=== PATIENT | male | born 1935 | race African-American/Black ===

== ENCOUNTER → 2021-03-29 | Outpatient (CLI) | payer MEDICARE, MEDICAID ==
[~2021-03-29] MED LIST: ALBUTEROL INHALER INH; AMLO5TAB88 PO; DOXA2TAB PO; DUTA0.5C2; FINA5TAB11 PO; GLIM2TAB30 PO; HYDR12.54 PO; METF-416 PO; OMEP20CA14 PO; SILO4CAP; SIMV20TA2 PO
== END | disposition home or self-care (01) ==
LOC: CT 08:10
PROVIDERS: ATTEND Urology
DX: N40.0 Benign prostatic hyperplasia without lower urinary tract symptoms (principal); K76.9 Liver disease, unspecified; N43.3 Hydrocele, unspecified; I70.0 Atherosclerosis of aorta
CPT/HCPCS: 74176

== ENCOUNTER → 2022-10-02 | Outpatient (CLI) | payer MEDICARE, MEDICAID ==
[~2022-10-02] MED LIST changes: +DOXA-14 PO; -DOXA2TAB PO; +SIMV-343 PO; -SIMV20TA2 PO
== END | disposition home or self-care (01) ==
LOC: RAD 07:28
PROVIDERS: ATTEND Internal Medicine
DX: Z01.818 Encounter for other preprocedural examination (principal); R94.31 Abnormal electrocardiogram [ECG] [EKG]
CPT/HCPCS: 71045; 93005